=== PATIENT | male | born 1980 | race Two or more races ===

== ENCOUNTER 2023-04-13 12:18 | Emergency (ER) | payer MEDICAID ==
[~2023-04-13] VITALS: Ht 172.7 cm; Wt 84.0 kg
[2023-04-13 15:29] VITALS: BP 142/95; PULSE 110; RESP 16; O2SAT 96
[2023-04-13] MEDS ORDERED: cefTRIAXone SOD 1,000 MG VL IM ONE (15:30)
[2023-04-13] MEDS ORDERED: ACETAMINOPHEN 500 MG TAB PO ONE (15:30)
[2023-04-13 16:52] VITALS: TEMP 99
[2023-04-13] MEDS ORDERED: CIPR1SUS8 OT (17:14)
[2023-04-13] MEDS ORDERED: AMOX500T3 PO (17:14)
[2023-04-13] MEDS ORDERED: MELO7.5T7 PO (17:15)
== END 2023-04-13 17:22 | disposition home or self-care (01) ==
LOC: ER 12:18
DX: H92.02 Otalgia, left ear (principal); H74.8X2 Other specified disorders of left middle ear and mastoid; Z79.2 Long term (current) use of antibiotics; Z79.899 Other long term (current) drug therapy
CPT/HCPCS: 70450; 70480; 96372; 99285; J0696